=== PATIENT | male | born 1950 | race Caucasian/White ===

== ENCOUNTER → 2017-06-23 | Outpatient (CLI) | payer MEDICARE ==
--- NOTE | 2017-06-23 14:31 | PCVCIMAG ---
APPROVED REPORT Exam: Stress Echocardiogram Indication: Hypertension, Hyperlipidemia Patient Location: Echo lab Stress Nurse: Karena Carey RN Room #: 2 Status: routine Ht: 6 ft 0 in HR: 75 bpm BP: 150/88 mmHg Rhythm: NSR Medical History Medical History: HTN, Hyperlipidemia, Cardiac Risk Factors: HTN, Hyperlipidemia, FHX of CAD Pretest Chest Pain Characteristics: No chest pain Exercise History: Physically active Procedure The patient underwent an Exercise Stress Test using the Samuel Protocol. Blood pressure, heart rate, and EKG were monitored. An Echocardiogram was performed by personnel and payroll technician in four stages in quad fashion. At peak stress, four selected images were obtained and placed side by side with resting images for comparison. Stress Test Details Stress Test: Exercise stress testing was performed using a Samuel protocol. HR Resting HR: 75 bpmMax Heart Rate (APMHR): 153 bpm Max HR Achieved: 160 bpmTarget HR (85% APMHR): 130 bpm % of APMHR: 104 Recovery HR: 88 bpm HR response to stress: Normal HR response to stress BP Resting BP: 150/88 mmHg Max BP: 180/80 mmHg Recovery BP: 148/86 mmHg ECG Resting ECG: Sinus Rhythm Stress ECG: Sinus Rhythm ST Change: Non-ischemic, Upsloping ST depression Maximum ST Deviation: 1.3 mm Arrhythmia: None Recovery ECG: Sinus Rhythm Recovery ST Change: Non-ischemic, Upsloping ST depression Recovery ST Deviation: 0.7 mm Recovery Arrhythmia: None Clinical Reason for Termination: Maximal effort Stress Symptoms: none Exercise duration: 8 min 01 sec Highest Stage Achieved: Stage 3: 3.4 mph at 14% grade. Overall Exercise Capacity for Age: Average Angina Score: None Stress ECG Conclusion The patient exercised according to the Samuel protocol for 8:01 mins; achieving a work level of 10.1 METS. The resting heart rate of 75 bpm yvette to a maximal heart rate of 160 bpm. This value represents 104% of the maximal, age-predicted heart rate. The resting blood pressure of 150/88 mmHg, yvette to a maximum of 180/80 mmHg. The exercise test was stopped due to fatigue. De La Cruz Treadmill Score is 1.5 which is Moderate risk. Pre-Stress Echo The resting Echocardiogram showed normal left ventricular contractility with an estimated Ejection Fraction of about 55-60%. Normal wall motion in all segments on baseline images. Post-Stress Echo The stress Echocardiogram showed normal left ventricular contractility with an estimated Ejection Fraction of about 65-70%. Normal augmentation of wall motion in all segments on post stress images. Clinical No clinical or ECG evidence for ischemia. Conclusion Clinical Response: Non-ischemic Exercise Capacity: Average Stress ECG Response: Non-ischemic Stress Echo Images: Non-ischemic No clinical, EKG or echocardiographic evidence for ischemia. No echocardiographic evidence for exercise induced ischemia. Normal stress echocardiogram with maximal exercise stress. <Conclusion> No clinical, EKG or echocardiographic evidence for ischemia. No echocardiographic evidence for exercise induced ischemia. Normal stress echocardiogram with maximal exercise stress.
== END | disposition home or self-care (01) ==
LOC: PCVCIMAG 10:15
PROVIDERS: ATTEND Internal Medicine Cardiovascular Disease
DX: I10 Essential (primary) hypertension (principal); E78.5 Hyperlipidemia, unspecified; Z82.49 Family history of ischemic heart disease and other diseases of the circulatory system
CPT/HCPCS: 93325; 93351

== ENCOUNTER → 2018-08-23 | Outpatient (CLI) | payer MEDICARE ==
--- NOTE | 2018-08-23 11:58 | PCVCIMAG ---
EXAM: BILATERAL CAROTID DUPLEX INDICATION: Carotid Occlusive Disease. FINDINGS: Doppler Measurements (centimeters per second): RIGHT: Peak CCA-104, Peak ECA-94, Diastolic ICA-14, Peak ICA-73, ICA/CCA Ratio-0.7. LEFT: Peak CCA-95, Peak ECA-94, Diastolic ICA-18, Peak ICA-77, ICA/CCA Ratio-0.8. RIGHT CAROTID: The carotid bulb has minimal plaque. The proximal internal carotid artery shows no significant stenosis. The common carotid artery shows no significant stenosis. The external carotid artery shows no significant stenosis. LEFT CAROTID: The carotid bulb has mild plaque. The proximal internal carotid artery shows <40% stenosis. The common carotid artery shows no significant stenosis. The external carotid artery shows no significant stenosis. Antegrade flow in both vertebral arteries. IMPRESSION: No significant stenosis of the right internal carotid artery with minimal plaque. <40% stenosis of the left internal carotid artery with mild plaque. LOC:[place] [id number]
--- NOTE | 2018-08-23 21:27 | PCVCIMAG ---
EXAM: ULTRASOUND OF THE THYROID INDICATION: Thyroid nodules. FINDINGS: The right thyroid lobe measures 1.8 x 2.0 x 5.1 cm. The left thyroid lobe measures 1.5 x 1.9 x 5.1 cm. 0.6 x 0.8 x 0.9 cm solid nodule mid right thyroid lobe. 0.2 x 0.4 x 0.6 cm solid nodule lower pole right thyroid lobe. No nodules in the left thyroid lobe are identified. IMPRESSION: 2 solid nodules in the right thyroid lobe as detailed above. No prior study available for comparison. Interval follow-up is suggested. If needed further evaluation by ENT may be helpful. LOC:OFFICE
== END | disposition home or self-care (01) ==
LOC: PCVCIMAG 07:57
PROVIDERS: ATTEND Internal Medicine Cardiovascular Disease
DX: I65.22 Occlusion and stenosis of left carotid artery (principal); I25.10 Atherosclerotic heart disease of native coronary artery without angina pectoris; I10 Essential (primary) hypertension; E04.2 Nontoxic multinodular goiter; E78.00 Pure hypercholesterolemia, unspecified; R07.89 Other chest pain; G47.30 Sleep apnea, unspecified; Z82.49 Family history of ischemic heart disease and other diseases of the circulatory system; Z79.82 Long term (current) use of aspirin; Z79.899 Other long term (current) drug therapy
CPT/HCPCS: 36415; 76536; 80061; 93005; 93880; G0463

== ENCOUNTER → 2018-09-25 | Outpatient (CLI) | payer MEDICARE ==
--- NOTE | 2018-09-25 14:47 | PCVCIMAG ---
APPROVED REPORT Study performed: 09/25/2018 13:15:02 Exam: Stress Echocardiogram Indication: CAD Stress Nurse: Karena Carey RN Status: routine Ht: 6 ft 0 in HR: 79 bpm BP: 128/82 mmHg Rhythm: NSR Medical History Medical History: Hyperlipidemia, HTN Procedure The patient underwent an Exercise Stress Test using the Samuel Protocol. Blood pressure, heart rate, and EKG were monitored. An Echocardiogram was performed by injection molding technician in four stages in quad fashion. At peak stress, four selected images were obtained and placed side by side with resting images for comparison. Stress Test Details Stress Test: Exercise stress testing was performed using a Samuel protocol. HR Resting HR: 79 bpmMax Heart Rate (APMHR): 152 bpm Max HR Achieved: 144 bpmTarget HR (85% APMHR): 129 bpm % of APMHR: 94 Recovery HR: 84 bpm HR response to stress: Normal HR response to stress BP Resting BP: 128/82 mmHg Max BP: 164/70 mmHg Recovery BP: 128/74 mmHg BP response to stress: Normal blood pressure response to stress. ECG Resting ECG: Sinus Rhythm Stress ECG: Sinus Rhythm Recovery ECG: Sinus Rhythm Clinical Reason for Termination: Maximal effort Exercise duration: 6 min 59 sec Highest Stage Achieved: Stage 3: 3.4 mph at 14% grade. Exercise capacity: 9.80 METs Overall Exercise Capacity for Age: Normal Stress ECG Conclusion ECG: Non-ischemic Clinical: Non-ischemic Pre-Stress Echo The resting Echocardiogram showed normal left ventricular contractility with an estimated Ejection Fraction of about >55%. Normal wall motion in all segments on baseline images. Post-Stress Echo The stress Echocardiogram showed normal left ventricular contractility with an estimated Ejection Fraction of about 60-65%. Normal augmentation of wall motion in all segments on post stress images. Clinical No clinical or ECG evidence for ischemia. Conclusion Clinical Response: Non-ischemic Exercise Capacity: Average Stress ECG Response: Non-ischemic Stress Echo Images: Non-ischemic The left ventricle is normal in size and wall thickness in both the rest and stress images. Other Information Study Quality: Good <Conclusion> The left ventricle is normal in size and wall thickness in both the rest and stress images.
== END | disposition home or self-care (01) ==
LOC: PCVCIMAG 13:17
PROVIDERS: ATTEND Internal Medicine Cardiovascular Disease
DX: I25.10 Atherosclerotic heart disease of native coronary artery without angina pectoris (principal); I65.23 Occlusion and stenosis of bilateral carotid arteries; R07.89 Other chest pain; I10 Essential (primary) hypertension; G47.30 Sleep apnea, unspecified; E78.5 Hyperlipidemia, unspecified
CPT/HCPCS: 93325; 93351